=== PATIENT | male | born 1935 | race Caucasian/White ===

== ENCOUNTER 2017-08-30 07:21 | Outpatient (CLI) | payer OTHER | END 2017-08-30 07:25 | disposition home or self-care (01) | LOC: LAB 07:21 | DX: Z85.528 Personal history of other malignant neoplasm of kidney (principal) ==

== ENCOUNTER 2023-11-30 09:19 | Inpatient (IN) | payer OTHER ==
[~2023-11-30] VITALS: Ht 147.3 cm; Wt 59.0 kg
[2023-11-30] MEDS ORDERED: DONEPEZIL HCL5 MG PO (09:29)
[2023-11-30] MEDS ORDERED: FOLIC ACID1 MG PO (09:30)
[2023-11-30 10:41] LABS: HEMATOCRIT 34.8 % (39.0-48.0); HEMOGLOBIN 11.6 g/dL (13-16.00); MEAN CELL VOLUME 91.9 fL (80.0-100.00); MEAN CORPUSCULAR HEMOGLOBIN 30.7 pg (27.00-32.0); MEAN CORPUSCULAR HGB CONC 33.3 g/dl (32.0-36.0); PLATELET COUNT 190 K/uL (150-450); RED BLOOD COUNT 3.79 M/uL (4.00-6.00)
[2023-11-30 11:13] LABS: ALBUMIN 3.1 gm/dL (3.4-5.0); BILIRUBIN TOTAL 0.7 mg/dL (0.3-1.2); BILIRUBIN,CONJUGATED 0.17 mg/dL (0.0-0.2); BILIRUBIN,UNCONJUGATED 0.53 mg/dL (0.0-0.6); CALCIUM 8.4 mg/dL (8.5-10.1); CREATININE SERUM 1.2 mg/dL (0.70-1.30); GFR 57.01; POTASSIUM 4.24 mEq/L (3.5-5.1); TOTAL PROTEIN 6.1 gm/dL (6.4-8.2)
[2023-11-30] MEDS ORDERED: ENOXAPARIN SODIUM 60 MG/0.6 ML SYRINGE SUBCUTANEO STA (12:07)
[2023-11-30] MEDS ORDERED: DEXAMETHASONE SODIUM PHOSPHATE 4 MG/ML VIAL IV STA (12:08)
[2023-11-30] MEDS ORDERED: ENOXAPARIN SODIUM 60 MG/0.6 ML SYRINGE SUBCUTANEO ONE (12:12)
[2023-11-30] MEDS ORDERED: DEXAMETHASONE SODIUM PHOSPHATE 4 MG/ML VIAL ONE (12:12)
[2023-11-30 14:45] LABS: PH,URINE 6.5 (5.0-8.0); URINE APPEARANCE Clear; URINE BILIRRUBIN Negative (NEGATIVE); URINE BLOOD Trace; URINE COLOR Yellow; URINE GLUCOSE Negative (NEGATIVE); URINE KETONE 15 (NEGATIVE); URINE LEUKOCYTE Negative; URINE NITRATE Negative; URINE UROBILINOGEN 0.2 E.U./dl
[2023-11-30 14:49] LABS: URINE BACTERIA 96.9 uL (0.0-1933); URINE EPITHELIAL CELLS 4.9 uL (0.0-38.8); URINE RBC 8.8 uL (0.0-20.8); URINE WBC 42.7 uL (0.0-23.2)
[2023-11-30 14:53] LABS: URINE CAST 0.61 uL (0.0-1.40); URINE PROTEIN 100 (NEGATIVE)
[2023-11-30] MEDS ORDERED: LevETIRAcetam 500 MG/5 ML VIAL IV STA (14:59)
[2023-11-30] MEDS ORDERED: ATORVASTATIN CALCIUM 40 MG TABLET PO SCH (18:40)
[2023-11-30] MEDS ORDERED: DONEPEZIL HCL 5 MG TABLET PO SCH (18:41)
[2023-11-30] MEDS ORDERED: ACETAMINOPHEN 500 MG GEL..CAP PO PRN (18:45)
[2023-11-30] MEDS ORDERED: 0.9 % SODIUM CHLORIDE 1,000 ML IV SCH (18:45)
[2023-11-30] MEDS ORDERED: ONDANSETRON HCL 4 MG in 0.9 % SODIUM CHLORIDE 50 ML IV PRN (18:45)
[2023-11-30 21:30] VITALS: BP 146/77; O2SAT 96
[2023-11-30 21:43] LABS: INR 1.12; PROTHROMBIN TIME 12.1 SECONDS (9.0-11.5)
[2023-11-30 21:45] LABS: D DIMER 0.35 MG/L; PARTIAL THROMBOPLASTIN TIME 31.4 SECONDS (22.0-34.0)
[2023-11-30 23:56] VITALS: BP 127/92; O2SAT 98
[2023-12-01 08:17] VITALS: BP 170/66; O2SAT 99
[2023-12-01] MEDS ORDERED: FOLIC ACID 1 MG TABLET PO SCH (09:00)
[2023-12-01] MEDS ORDERED: FAMOTIDINE/PF 20 MG in 0.9 % SODIUM CHLORIDE 8 ML IV PUSH SCH (09:00)
[2023-12-01] MEDS ORDERED: LevETIRAcetam 500 MG TAB. PO SCH (09:00)
[2023-12-01] MEDS ORDERED: hydrALAZINE HCL 20 MG VIAL IV PRN (10:15)
[2023-12-01] MEDS ORDERED: CLOPIDOGREL BISULFATE 75 MG TABLET PO NR (11:00)
[2023-12-01] MEDS ORDERED: CLOPIDOGREL BISULFATE 75 MG TABLET PO ONE (11:16)
[2023-12-01] MEDS ORDERED: PIPERACILLIN/TAZOBACTAM SODIUM 3.375 GM VIAL IV ONE (14:15)
[2023-12-01 15:32] VITALS: BP 140/70; O2SAT 100
[2023-12-01 16:36] VITALS: BP 170/60
[2023-12-01 17:36] VITALS: BP 160/74
[2023-12-01 18:02] VITALS: O2SAT 99
[2023-12-01] MEDS ORDERED: LORazepam 2 MG/ML VIAL IV PRN (20:30)
[2023-12-01 20:47] VITALS: BP 160/74; O2SAT 100
[2023-12-02] VITALS (10 sets, daily range): BP systolic 147–164; BP diastolic 78–92; O2SAT 96–99
[2023-12-02] MEDS ORDERED: FAMOTIDINE/PF 20 MG/2 ML VIAL ONE (08:46)
[2023-12-02] MEDS ORDERED: CLOPIDOGREL BISULFATE 75 MG TABLET PO SCH (09:00)
[2023-12-02] MEDS ORDERED: LevETIRAcetam 500 MG/5 ML VIAL IV SCH (09:00)
[2023-12-02 09:03] LABS: HEMOGLOBIN 12.4 g/dL (13-16.00); MEAN CELL VOLUME 91.3 fL (80.0-100.00); MEAN CORPUSCULAR HEMOGLOBIN 31.4 pg (27.00-32.0); MEAN CORPUSCULAR HGB CONC 34.4 g/dl (32.0-36.0); PLATELET COUNT 185 K/uL (150-450); RED BLOOD COUNT 3.95 M/uL (4.00-6.00)
[2023-12-02 10:20] LABS: ALBUMIN 3.3 gm/dL (3.4-5.0); BILIRUBIN TOTAL 0.88 mg/dL (0.3-1.2); CALCIUM 8.2 mg/dL (8.5-10.1); CREATININE SERUM 1.22 mg/dL (0.70-1.30); FREE TRIODOTIRONINE 1.95 pg/ml (2.18-3.98); GFR 55.93; GLOBULINA 2.8 G/DL (2.4-3.5); MAGNESIUM 2.3 mg/dL (1.8-2.4); PHOSPHOROUS 3.2 mg/dL (2.5-4.9); POTASSIUM 4.13 mEq/L (3.5-5.1); T4 FREE 1.45 NG/ML (0.76-1.46); T4 TOTAL 7.8 UG/DL (4.5-12.1); TOTAL PROTEIN 6.1 gm/dL (6.4-8.2)
[2023-12-02] MEDS ORDERED: GUAIFENESIN/DEXTROMETHORPHAN 10ML BLIST.PACK PO SCH (18:00)
[2023-12-02] MEDS ORDERED: LEVALBUTEROL HCL 0.63 MG/3 ML SOLUTION IH SCH (18:00)
[2023-12-02 20:39] LABS: URINE APPEARANCE Clear; URINE BILIRRUBIN Negative (NEGATIVE); URINE BLOOD Large; URINE COLOR Yellow; URINE GLUCOSE Negative (NEGATIVE); URINE LEUKOCYTE Trace; URINE NITRATE Negative
[2023-12-02 20:42] LABS: URINE BACTERIA 127.2 uL (0.0-1933); URINE CAST 4.27 uL (0.0-1.40); URINE EPITHELIAL CELLS 7.1 uL (0.0-38.8); URINE RBC 1141.3 uL (0.0-20.8); URINE WBC 92.4 uL (0.0-23.2)
[2023-12-02 21:20] LABS: URINE KETONE 40 (NEGATIVE); URINE PROTEIN 300 (NEGATIVE)
[2023-12-03] VITALS (7 sets, daily range): BP systolic 133–170; BP diastolic 60–75; O2SAT 99–100
[2023-12-03 08:21] LABS: HEMATOCRIT 33.7 % (39.0-48.0); HEMOGLOBIN 11.5 g/dL (13-16.00); MEAN CELL VOLUME 92.3 fL (80.0-100.00); MEAN CORPUSCULAR HEMOGLOBIN 31.5 pg (27.00-32.0); MEAN CORPUSCULAR HGB CONC 34.1 g/dl (32.0-36.0); PLATELET COUNT 165 K/uL (150-450); RED BLOOD COUNT 3.65 M/uL (4.00-6.00); RED CELL DISTRIBUTION WIDTH 14.3 % (11.5-14.5)
[2023-12-03] MEDS ORDERED: FAMOTIDINE/PF 20 MG/2 ML VIAL ONE (08:30)
[2023-12-03 09:35] LABS: ALBUMIN 2.8 gm/dL (3.4-5.0); BILIRUBIN TOTAL 0.61 mg/dL (0.3-1.2); CALCIUM 8.4 mg/dL (8.5-10.1); CREATININE SERUM 1.32 mg/dL (0.70-1.30); GFR 51.07; GLOBULINA 2.7 G/DL (2.4-3.5); MAGNESIUM 2.5 mg/dL (1.8-2.4); POTASSIUM 4.19 mEq/L (3.5-5.1); TOTAL PROTEIN 5.5 gm/dL (6.4-8.2)
[2023-12-03] MEDS ORDERED: PIPERACILLIN/TAZOBACTAM SODIUM 3.375 GM VIAL IV SCH (18:00)
[2023-12-04] VITALS (8 sets, daily range): BP systolic 151–193; BP diastolic 68–93; O2SAT 95–100
[2023-12-04 14:28] LABS: PH,URINE 5.5 (5.0-8.0); URINE APPEARANCE Clear; URINE BILIRRUBIN Negative (NEGATIVE); URINE BLOOD Moderate; URINE COLOR Yellow; URINE GLUCOSE Negative (NEGATIVE); URINE LEUKOCYTE Negative; URINE NITRATE Negative
[2023-12-04 14:33] LABS: URINE BACTERIA 60.4 uL (0.0-1933); URINE CAST 4.88 uL (0.0-1.40); URINE EPITHELIAL CELLS 9.5 uL (0.0-38.8); URINE RBC 168.1 uL (0.0-20.8); URINE WBC 39.2 uL (0.0-23.2)
[2023-12-04 14:58] LABS: URINE KETONE 80 (NEGATIVE); URINE PROTEIN 100 (NEGATIVE)
[2023-12-05] VITALS (9 sets, daily range): BP systolic 168–182; BP diastolic 80–88; O2SAT 90–100
[2023-12-06] VITALS (7 sets, daily range): BP systolic 160–164; BP diastolic 76–85; O2SAT 97–100
[2023-12-06 12:20] LABS: HEMATOCRIT 30.5 % (39.0-48.0); HEMOGLOBIN 10.5 g/dL (13-16.00); MEAN CORPUSCULAR HEMOGLOBIN 31.2 pg (27.00-32.0); MEAN CORPUSCULAR HGB CONC 34.3 g/dl (32.0-36.0); PLATELET COUNT 190 K/uL (150-450); RED BLOOD COUNT 3.35 M/uL (4.00-6.00); RED CELL DISTRIBUTION WIDTH 14.5 % (11.5-14.5)
[2023-12-06] MEDS ORDERED: CIPROFLOXACIN IN 5 % DEXTROSE 400 MG/200 ML PIGGYBAG IV SCH (12:34)
[2023-12-06] MEDS ORDERED: DEXTROSE 5 %-0.45 % SOD CHLORD 1,000 ML IV SCH (18:15)
[2023-12-06 21:42] LABS: ALBUMIN 2.4 gm/dL (3.4-5.0); BILIRUBIN TOTAL 0.72 mg/dL (0.3-1.2); CALCIUM 8.2 mg/dL (8.5-10.1); CREATININE SERUM 0.95 mg/dL (0.70-1.30); GFR 74.65; GLOBULINA 3.1 G/DL (2.4-3.5); PHOSPHOROUS 2.4 mg/dL (2.5-4.9); POTASSIUM 4.01 mEq/L (3.5-5.1); TOTAL PROTEIN 5.5 gm/dL (6.4-8.2)
[2023-12-07] VITALS (8 sets, daily range): BP systolic 155–177; BP diastolic 71–93; O2SAT 96–100
[2023-12-07 08:41] LABS: ALBUMIN 2.3 gm/dL (3.4-5.0); BILIRUBIN TOTAL 0.51 mg/dL (0.3-1.2); CALCIUM 8.1 mg/dL (8.5-10.1); CREATININE SERUM 0.96 mg/dL (0.70-1.30); GFR 73.75; GLOBULINA 2.9 G/DL (2.4-3.5); POTASSIUM 4.03 mEq/L (3.5-5.1); TOTAL PROTEIN 5.2 gm/dL (6.4-8.2)
[2023-12-08] VITALS (7 sets, daily range): BP systolic 158–164; BP diastolic 77–91; O2SAT 97–100
[2023-12-09] VITALS (9 sets, daily range): BP systolic 140–160; BP diastolic 74–85; O2SAT 94–100
[2023-12-09] MEDS ORDERED: LOSARTAN POTASSIUM 25 MG TABLET PO SCH (09:00)
[2023-12-09 09:37] LABS: HEMATOCRIT 35.6 % (39.0-48.0); HEMOGLOBIN 12.1 g/dL (13-16.00); MEAN CELL VOLUME 90.8 fL (80.0-100.00); MEAN CORPUSCULAR HEMOGLOBIN 30.7 pg (27.00-32.0); MEAN CORPUSCULAR HGB CONC 33.8 g/dl (32.0-36.0); PLATELET COUNT 250 K/uL (150-450); RED BLOOD COUNT 3.92 M/uL (4.00-6.00); RED CELL DISTRIBUTION WIDTH 14.2 % (11.5-14.5)
[2023-12-09 11:07] LABS: ALBUMIN 2.3 gm/dL (3.4-5.0); BILIRUBIN TOTAL 0.71 mg/dL (0.3-1.2); CALCIUM 8.1 mg/dL (8.5-10.1); CREATININE SERUM 0.99 mg/dL (0.70-1.30); GFR 71.18; MAGNESIUM 1.8 mg/dL (1.8-2.4); PHOSPHOROUS 2.6 mg/dL (2.5-4.9); POTASSIUM 3.62 mEq/L (3.5-5.1); TOTAL PROTEIN 5.3 gm/dL (6.4-8.2)
[2023-12-09] MEDS ORDERED: AA 4.25%/CAL/LYTES/DEXT 5% 1,000 ML PERIFERAL SCH (17:00)
[2023-12-10 01:00] VITALS: O2SAT 100
[2023-12-10 01:48] VITALS: BP 160/90; O2SAT 98
[2023-12-10 05:00] VITALS: O2SAT 98
[2023-12-10 08:32] LABS: HEMATOCRIT 30.8 % (39.0-48.0); HEMOGLOBIN 10.8 g/dL (13-16.00); MEAN CELL VOLUME 88.6 fL (80.0-100.00); MEAN CORPUSCULAR HEMOGLOBIN 31.2 pg (27.00-32.0); MEAN CORPUSCULAR HGB CONC 35.2 g/dl (32.0-36.0); PLATELET COUNT 213 K/uL (150-450); RED BLOOD COUNT 3.48 M/uL (4.00-6.00); RED CELL DISTRIBUTION WIDTH 14.1 % (11.5-14.5)
[2023-12-10 08:54] LABS: INR 1.61; PARTIAL THROMBOPLASTIN TIME 34.4 SECONDS (22.0-34.0)
[2023-12-10 09:05] LABS: PROTHROMBIN TIME 16.9 SECONDS (9.0-11.5)
[2023-12-10 09:21] VITALS: BP 157/84; O2SAT 100
[2023-12-10 09:33] LABS: BILIRUBIN TOTAL 0.5 mg/dL (0.3-1.2); CALCIUM 7.6 mg/dL (8.5-10.1); CHOL HDL RATIO 2.1 (0-5.0); CREATININE SERUM 0.93 mg/dL (0.70-1.30); GFR 76.5; GLOBULINA 2.7 G/DL (2.4-3.5); POTASSIUM 3.86 mEq/L (3.5-5.1); TOTAL PROTEIN 4.7 gm/dL (6.4-8.2)
[2023-12-10 09:50] LABS: C-REACTIVE PROTEIN 6.88 MG/DL (0.00-0.29)
[2023-12-10 13:36] VITALS: O2SAT 100
[2023-12-10 17:01] VITALS: BP 154/75
[2023-12-11 02:04] VITALS: BP 146/70
[2023-12-11 08:27] VITALS: BP 170/83
[2023-12-11 09:26] VITALS: O2SAT 100
[2023-12-11 12:38] VITALS: O2SAT 99
[2023-12-11 15:44] VITALS: O2SAT 99
[2023-12-11 16:00] VITALS: BP 157/88; O2SAT 99
[2023-12-12] VITALS (8 sets, daily range): BP systolic 153–180; BP diastolic 80–91; O2SAT 95–100
[2023-12-12 08:32] LABS: HEMATOCRIT 32.1 % (39.0-48.0); HEMOGLOBIN 10.9 g/dL (13-16.00); MEAN CELL VOLUME 90.4 fL (80.0-100.00); MEAN CORPUSCULAR HEMOGLOBIN 30.6 pg (27.00-32.0); MEAN CORPUSCULAR HGB CONC 33.9 g/dl (32.0-36.0); PLATELET COUNT 202 K/uL (150-450); RED BLOOD COUNT 3.55 M/uL (4.00-6.00); RED CELL DISTRIBUTION WIDTH 13.9 % (11.5-14.5)
[2023-12-12] MEDS ORDERED: AMLODIPINE BESYLATE 5 MG TABLET PO SCH (09:00)
[2023-12-12 09:12] LABS: ALBUMIN 2.1 gm/dL (3.4-5.0); BILIRUBIN TOTAL 0.47 mg/dL (0.3-1.2); CALCIUM 7.8 mg/dL (8.5-10.1); CREATININE SERUM 0.89 mg/dL (0.70-1.30); GFR 80.48; MAGNESIUM 1.9 mg/dL (1.8-2.4); PHOSPHOROUS 2.5 mg/dL (2.5-4.9); POTASSIUM 3.93 mEq/L (3.5-5.1); TOTAL PROTEIN 5.1 gm/dL (6.4-8.2)
[2023-12-13] VITALS (9 sets, daily range): BP systolic 14–151; BP diastolic 72–88; O2SAT 97–100
[2023-12-13 06:46] LABS: HEMATOCRIT 31.3 % (39.0-48.0); HEMOGLOBIN 10.7 g/dL (13-16.00); MEAN CELL VOLUME 90.9 fL (80.0-100.00); MEAN CORPUSCULAR HEMOGLOBIN 31.1 pg (27.00-32.0); MEAN CORPUSCULAR HGB CONC 34.3 g/dl (32.0-36.0); PLATELET COUNT 206 K/uL (150-450); RED BLOOD COUNT 3.45 M/uL (4.00-6.00)
[2023-12-13 06:58] LABS: BILIRUBIN TOTAL 0.51 mg/dL (0.3-1.2); BILIRUBIN,CONJUGATED 0.21 mg/dL (0.0-0.2); BILIRUBIN,UNCONJUGATED 0.3 mg/dL (0.0-0.6); CHOL HDL RATIO 2.3 (0-5.0); CREATININE SERUM 0.86 mg/dL (0.70-1.30); GFR 83.73; INR 1.68; MAGNESIUM 1.9 mg/dL (1.8-2.4); PARTIAL THROMBOPLASTIN TIME 36.7 SECONDS (22.0-34.0); POTASSIUM 4.63 mEq/L (3.5-5.1)
[2023-12-13 07:06] LABS: PROTHROMBIN TIME 17.6 SECONDS (9.0-11.5)
[2023-12-13 08:47] LABS: UREA CLEARANCE 26.8 ML/MIN
[2023-12-13] MEDS ORDERED: LINEZOLID IN DEXTROSE 5% 600 MG/300 ML PIGGYBAG IV NR (13:00)
[2023-12-13] MEDS ORDERED: PHYTONADIONE 10 MG/ML AMPUL IV STA (14:20)
[2023-12-13] MEDS ORDERED: LINEZOLID IN DEXTROSE 5% 300 ML IV SCH (21:00)
[2023-12-14] VITALS (7 sets, daily range): BP systolic 120–155; BP diastolic 67–81; O2SAT 95–100
[2023-12-14 10:19] LABS: INR 1.25; PARTIAL THROMBOPLASTIN TIME 33.3 SECONDS (22.0-34.0); PROTHROMBIN TIME 13.4 SECONDS (9.0-11.5)
[2023-12-15] VITALS (9 sets, daily range): BP systolic 145–165; BP diastolic 77–80; O2SAT 98–100
[2023-12-15 08:50] LABS: HEMOGLOBIN 10.7 g/dL (13-16.00); MEAN CELL VOLUME 89.5 fL (80.0-100.00); MEAN CORPUSCULAR HEMOGLOBIN 30.7 pg (27.00-32.0); MEAN CORPUSCULAR HGB CONC 34.3 g/dl (32.0-36.0); PLATELET COUNT 206 K/uL (150-450); RED BLOOD COUNT 3.47 M/uL (4.00-6.00); RED CELL DISTRIBUTION WIDTH 14.2 % (11.5-14.5)
[2023-12-15 09:48] LABS: ALBUMIN 1.9 gm/dL (3.4-5.0); BILIRUBIN TOTAL 0.37 mg/dL (0.3-1.2); C-REACTIVE PROTEIN 4.45 MG/DL (0.00-0.29); CREATININE SERUM 0.82 mg/dL (0.70-1.30); GFR 88.46; MAGNESIUM 2.2 mg/dL (1.8-2.4); PHOSPHOROUS 3.1 mg/dL (2.5-4.9); POTASSIUM 4.58 mEq/L (3.5-5.1); TOTAL PROTEIN 4.9 gm/dL (6.4-8.2)
[2023-12-15] MEDS ORDERED: NIFEDIPINE 30 MG TAB.SA.OSM PO SCH (18:26)
[2023-12-16] VITALS (8 sets, daily range): BP systolic 116–145; BP diastolic 67–69; O2SAT 98–100
[2023-12-16] MEDS ORDERED: IPRATROPIUM BROMIDE 0.5 MG/2.5 ML AMPUL.NEB IH SCH (14:39)
[2023-12-16] MEDS ORDERED: BUDESONIDE 0.5 MG/2 ML AMPUL.NEB IH SCH (17:00)
[2023-12-17] VITALS (8 sets, daily range): BP systolic 114–148; BP diastolic 64–75; O2SAT 74–100
[2023-12-17 14:16] LABS: HEMATOCRIT 28.7 % (39.0-48.0); HEMOGLOBIN 9.7 g/dL (13-16.00); MEAN CELL VOLUME 89.4 fL (80.0-100.00); MEAN CORPUSCULAR HEMOGLOBIN 30.3 pg (27.00-32.0); MEAN CORPUSCULAR HGB CONC 33.9 g/dl (32.0-36.0); PLATELET COUNT 268 K/uL (150-450); RED BLOOD COUNT 3.21 M/uL (4.00-6.00)
[2023-12-17 14:41] LABS: ALBUMIN 1.9 gm/dL (3.4-5.0); BILIRUBIN TOTAL 0.39 mg/dL (0.3-1.2); CALCIUM 7.8 mg/dL (8.5-10.1); CREATININE SERUM 1.01 mg/dL (0.70-1.30); GFR 69.55; PHOSPHOROUS 3.2 mg/dL (2.5-4.9); POTASSIUM 4.84 mEq/L (3.5-5.1); TOTAL PROTEIN 4.9 gm/dL (6.4-8.2)
[2023-12-17 14:42] LABS: C-REACTIVE PROTEIN 1.29 MG/DL (0.00-0.29)
[2023-12-18 01:17] VITALS: BP 148/72; O2SAT 100
[2023-12-18 08:41] VITALS: BP 165/76; O2SAT 99
[2023-12-18 10:55] VITALS: O2SAT 100
[2023-12-18 16:00] VITALS: BP 167/65; O2SAT 98
[2023-12-18 17:38] VITALS: O2SAT 90
[2023-12-18 21:04] VITALS: O2SAT 100
[2023-12-19 01:17] VITALS: BP 137/72; O2SAT 100
[2023-12-19 01:29] VITALS: O2SAT 99
[2023-12-19 09:04] VITALS: BP 131/74; O2SAT 98
[2023-12-19 11:05] VITALS: O2SAT 100
[2023-12-19 16:58] VITALS: O2SAT 98
[2023-12-19 16:59] VITALS: BP 128/63; O2SAT 98
[2023-12-20] VITALS (9 sets, daily range): BP systolic 135–163; BP diastolic 67–85; O2SAT 94–100
[2023-12-20 08:07] LABS: HEMATOCRIT 27.9 % (39.0-48.0); HEMOGLOBIN 9.8 g/dL (13-16.00); MEAN CELL VOLUME 88.8 fL (80.0-100.00); MEAN CORPUSCULAR HEMOGLOBIN 31.2 pg (27.00-32.0); MEAN CORPUSCULAR HGB CONC 35.2 g/dl (32.0-36.0); PLATELET COUNT 220 K/uL (150-450); RED BLOOD COUNT 3.14 M/uL (4.00-6.00); RED CELL DISTRIBUTION WIDTH 13.7 % (11.5-14.5)
[2023-12-20 08:23] LABS: INR 1.16; PARTIAL THROMBOPLASTIN TIME 29.4 SECONDS (22.0-34.0); PROTHROMBIN TIME 12.5 SECONDS (9.0-11.5)
[2023-12-20 09:28] LABS: ALBUMIN 1.9 gm/dL (3.4-5.0); BILIRUBIN TOTAL 0.41 mg/dL (0.3-1.2); BILIRUBIN,CONJUGATED 0.13 mg/dL (0.0-0.2); BILIRUBIN,UNCONJUGATED 0.28 mg/dL (0.0-0.6); CALCIUM 7.7 mg/dL (8.5-10.1); CHOL HDL RATIO 2.5 (0-5.0); CREATININE SERUM 0.95 mg/dL (0.70-1.30); GFR 74.65; GLOBULINA 3.2 G/DL (2.4-3.5); MAGNESIUM 2.2 mg/dL (1.8-2.4); POTASSIUM 5.26 mEq/L (3.5-5.1); TOTAL PROTEIN 5.1 gm/dL (6.4-8.2)
[2023-12-20 10:36] LABS: UREA CLEARANCE 23.8 ML/MIN
[2023-12-20] MEDS ORDERED: SODIUM CHLORIDE 0.45 % 1,000 ML IV SCH (11:45)
[2023-12-21] VITALS (8 sets, daily range): BP systolic 128–145; BP diastolic 69–78; O2SAT 96–100
[2023-12-21] MEDS ORDERED: LEVALBUTER0.31 MG/3 IH (16:54)
[2023-12-21] MEDS ORDERED: LIPITOR40 M1 PO (16:55)
[2023-12-21] MEDS ORDERED: LOSARTAN POTASS25 MG PO ×2 (16:56→17:02)
[2023-12-21] MEDS ORDERED: NIFEDIPINE ER30 M1 PO (16:57)
[2023-12-21] MEDS ORDERED: KEPPRA100 MG/1 M PO (16:59)
[2023-12-21] MEDS ORDERED: LINEZOLID600 MG PO (17:00)
[2023-12-22 00:55] VITALS: BP 165/80; O2SAT 99
[2023-12-22 00:59] VITALS: O2SAT 99
[2023-12-22 05:55] VITALS: O2SAT 98
[2023-12-22 09:00] VITALS: BP 125/78; O2SAT 98
== END 2023-12-22 11:52 | disposition home or self-care (01) | DRG 64 ==
LOC: ER 09:19 → MEDJ 18:49 → SEC-K 18:49 → MEDJ 12-01 15:20
PROVIDERS: General Practice; Internal Medicine Infectious Disease; Internal Medicine Nephrology; ADMIT Internal Medicine; ATTEND Internal Medicine
PROC: B246ZZZ Ultrasonography of Right and Left Heart (ICD-10-PCS; principal; 2023-11-30)
PROC: B345ZZZ Ultrasonography of Bilateral Common Carotid Arteries (ICD-10-PCS; 2023-11-30)
PROC: B348ZZZ Ultrasonography of Bilateral Internal Carotid Arteries (ICD-10-PCS; 2023-11-30)
PROC: B020ZZZ Computerized Tomography (CT Scan) of Brain (ICD-10-PCS; 2023-11-30)
PROC: B030ZZZ Magnetic Resonance Imaging (MRI) of Brain (ICD-10-PCS; 2023-11-30)
PROC: 4A12X4Z Monitoring of Cardiac Electrical Activity, External Approach (ICD-10-PCS; 2023-12-01)
PROC: BB24ZZZ Computerized Tomography (CT Scan) of Bilateral Lungs (ICD-10-PCS; 2023-12-02)
PROC: 3E0F7GC Introduction of Other Therapeutic Substance into Respiratory Tract, Via Natural or Artificial Opening (ICD-10-PCS; 2023-12-02)
PROC: B030ZZZ Magnetic Resonance Imaging (MRI) of Brain (ICD-10-PCS; 2023-12-07)
PROC: B030YZZ Magnetic Resonance Imaging (MRI) of Brain using Other Contrast (ICD-10-PCS; 2023-12-07)
PROC: 0DH67UZ Insertion of Feeding Device into Stomach, Via Natural or Artificial Opening (ICD-10-PCS; 2023-12-11)
PROC: 3E0G76Z Introduction of Nutritional Substance into Upper GI, Via Natural or Artificial Opening (ICD-10-PCS; 2023-12-11)
PROC: 02HV33Z Insertion of Infusion Device into Superior Vena Cava, Percutaneous Approach (ICD-10-PCS; 2023-12-17)
PROC: 3E0436Z Introduction of Nutritional Substance into Central Vein, Percutaneous Approach (ICD-10-PCS; 2023-12-17)
DX: I63.89 Other cerebral infarction (principal); J15.1 Pneumonia due to Pseudomonas; J69.0 Pneumonitis due to inhalation of food and vomit; J15.212 Pneumonia due to Methicillin resistant Staphylococcus aureus; G40.89 Other seizures; G81.91 Hemiplegia, unspecified affecting right dominant side; N17.9 Acute kidney failure, unspecified; E87.0 Hyperosmolality and hypernatremia; F02.811 Dementia in other diseases classified elsewhere, unspecified severity, with agitation; F05 Delirium due to known physiological condition; D49.6 Neoplasm of unspecified behavior of brain; G30.8 Other Alzheimer's disease; J44.9 Chronic obstructive pulmonary disease, unspecified; R13.12 Dysphagia, oropharyngeal phase; E87.5 Hyperkalemia; I12.9 Hypertensive chronic kidney disease with stage 1 through stage 4 chronic kidney disease, or unspecified chronic kidney disease; N18.9 Chronic kidney disease, unspecified; Z87.891 Personal history of nicotine dependence
CPT/HCPCS: 70545; 70551